=== PATIENT | male | born 1965 | race Caucasian/White ===

== ENCOUNTER 2020-11-20 14:53 | Observation (INO) | payer OTHER ==
[2020-11-20 15:26] VITALS: RESP 16
[2020-11-20] MEDS ORDERED: LIDOCAINE 1% (10MG/ML) FOR IV START INTRADERMA ONE ×2 (15:43)
[2020-11-20] MEDS ORDERED: LACTATED RINGERS 1,000 ML IV ONE (15:43)
[2020-11-20] MEDS ORDERED: ONDANSETRON 4 MG/2 ML VIAL ONE (15:45)
[2020-11-20] MEDS ORDERED: DEXAMETHASONE SOD PHOSPHATE 4 MG/ML 1 ML VIAL IV ONE (15:47)
[2020-11-20] MEDS ORDERED: ONDANSETRON 4 MG/2 ML VIAL IVP ONE (15:47)
[2020-11-20 15:56] LABS: Basophils # (A) 0.1 k/uL (0-0.2); Basophils % (A) 1 %; Eosinophils # (A) 0.2 k/uL (0-0.7); Eosinophils % (A) 2 %; HCT 45.3 % (39.0-53.0); HGB 15.4 gm/dL (13.0-17.5); Lymphocytes # (A) 1.7 k/uL (1.0-4.8); Lymphocytes % (A) 15 %; MCH 27.6 pg (25.0-35.0); MCHC 33.9 g/dL (31.0-37.0); MCV 81.2 fL (80.0-100.0); Mean Platelet Volume 6.9; Monocytes # (A) 0.7 k/uL (0-1.0); Monocytes % (A) 6 %; Neutrophils # (A) 8.2 k/uL (1.3-7.7); Neutrophils % (A) 73 %; Platelet Count 346 k/uL (150-450); RBC 5.58 m/uL (4.30-5.90); RDW 13.4 % (11.5-15.5); WBC 11.2 k/uL (3.8-10.6)
--- NOTE | 2020-11-20 16:02 | P.GSHP ---
History of Present Illness H&P Date: 11/20/20 Chief Complaint: Right scrotal swelling The patient is a 54-year-old white male who presented with right orchialgia. Ultrasound showed bilateral epididymal cysts. The right epididymis contained 23 mm and 5 mm cysts. He underwent a right epididymectomy on 10/28/2020. A small hydrocele was repaired as well. In the past week, he has experienced increased right scrotal swelling with sanguinous drainage. He underwent incision and drainage on November 18 in the office, and was placed on Keflex. However, there has been no significant improvement. - Constitutional Constitutional: Denies chills, Denies fever Past Medical History Past Medical History: No Reported History History of Any Multi-Drug Resistant Organisms: None Reported Additional Past Surgical History / Comment(s): Right spermatocelectomy with hydrocelectomy 10/2020. Past Psychological History: No Psychological Hx Reported Past Alcohol Use History: None Reported Past Drug Use History: None Reported Medications and Allergies Home Medications Medication Instructions Recorded Confirmed Type Cephalexin [Keflex] 500 mg PO Q6HR 11/20/20 11/20/20 History amLODIPine [Norvasc] 5 mg PO HS 11/20/20 11/20/20 History lisinopriL 40 mg PO HS 11/20/20 11/20/20 History Allergies Allergy/AdvReac Type Severity Reaction Status Date / Time No Known Allergies Allergy Verified 11/20/20 15:17 Surgical - Exam - General well developed, well nourished, no distress - Respiratory normal respiratory effort - Abdomen Abdomen: soft, non tender, no guarding, no rigid, no rebound - Genitourinary normal penis with no external lesions, testicles non-tender - Psychiatric oriented to time, oriented to person, oriented to place, speech is normal, memory intact Results - Labs 11/20/20 15:40 Assessment and Plan (1) Scrotal abscess Current Visit: No Status: Acute Code(s): N49.2 - INFLAMMATORY DISORDERS OF SCROTUM SNOMED Code(s): 65243660 Plan: Right scrotal exploration will be performed. The testicle will be evaluated. An infected hematoma is likely to be encountered, and this will be thoroughly drained and irrigated. If the testicle does not appear to be viable, an orchiectomy will be performed. All of this is been discussed in detail with the patient. He is aware of potential risks, which include anesthesia, bleeding, and persistent infection. He is agreeable to an orchiectomy if indicated. He understands that it may be necessary to allow the scrotal skin incision to heal by secondary intention.
[2020-11-20 16:15] LABS: African American GFR (CKD) >90 (>60 ml/min/1.73 sqM); Anion Gap 10 mmol/L; Blood Urea Nitrogen 11 mg/dL (9-20); Calcium 9.5 mg/dL (8.4-10.2); Carbon Dioxide 21 mmol/L (22-30); Chloride 105 mmol/L (98-107); Glucose 92 mg/dL (74-99); Non-African American GFR(CKD) >90 (>60 ml/min/1.73 sqM); Sodium 136 mmol/L (137-145)
[2020-11-20 16:18] LABS: Potassium 5.1 mmol/L (3.5-5.1)
[2020-11-20] MEDS ORDERED: LIDOCAINE 1% INJ 10MG/ML (20 ML MDV) ONE (18:34)
[2020-11-20] MEDS ORDERED: MIDAZOLAM 2 MG/2 ML VIAL ONE (18:34)
[2020-11-20] MEDS ORDERED: PROPOFOL 10 MG/ML 20 ML VIAL IV ONE (18:34)
[2020-11-20] MEDS ORDERED: HYDROmorphone (PF) 1 MG/ML ONE (18:34)
[2020-11-20] MEDS ORDERED: fentaNYL (PF) 50 MCG/ML 2 ML AMP ONE (18:34)
[2020-11-20] MEDS ORDERED: SUCCINYLCHOLINE CHLORIDE 100 MG/5 ML SYR IV ONE (18:34)
[2020-11-20] MEDS ORDERED: HYDROcodone/APAP 5-325MG 1 EACH TAB PO PRN (19:21)
[2020-11-20] MEDS ORDERED: HYDROmorphone 2 MG/ML 1 ML SYRINGE IVP PRN (19:21)
[2020-11-20] MEDS ORDERED: ACETAMINOPHEN TAB 325 MG TAB PO PRN (19:21)
--- NOTE | 2020-11-20 19:27 | P.OP ---
Date of Procedure: 11/20/20 Preoperative Diagnosis: Right scrotal abscess Postoperative Diagnosis: Same Procedure(s) Performed: Incision and drainage of right scrotal abscess Anesthesia: HARRIET Surgeon: Art Bo Estimated Blood Loss (ml): 10 IV fluids (ml): 400 Pathology: none sent Condition: stable Disposition: PACU Indications for Procedure: The patient is a 54-year-old white male who presented with right orchialgia. Ultrasound showed bilateral epididymal cysts. The right epididymis contained 23 mm and 5 mm cysts. He underwent a right epididymectomy on 10/28/2020. A small hydrocele was repaired as well. In the past week, he has experienced increased right scrotal swelling with sanguinous drainage. He underwent incision and drainage on November 18 in the office, and was placed on Keflex. However, there has been no significant improvement. Operative Findings: Right scrotal hematoma which appears infected. Description of Procedure: The patient was taken to the operating room and placed in the supine position. The external genitalia was prepped and draped sterilely. The scalpel was used to open the previous scrotal incision. As the scrotal space was entered, drainage of cloudy sanguinous fluid was noted. Digital dissection was used to break down any intrascrotal adhesions, and the right scrotal space was irrigated multiple times with normal saline. The testicle was palpably and visibly normal. After thoroughly irrigating the right scrotal space, the wound was packed with half-inch iodoform gauze. Hemostasis was excellent. The wound was covered with surgical fluffs, followed by scrotal support. All sponge and needle counts were correct. The patient tolerated the procedure well was taken to the recovery room in stable condition.
[2020-11-20] MEDS ORDERED: DEXTROSE 5%-0.45% NACL 1,000 ML IV SCH (19:30)
[2020-11-20] MEDS ORDERED: lisinopriL 20 MG TAB PO SCH (21:00)
[2020-11-20] MEDS ORDERED: amLODIPine 5 MG TAB PO SCH (21:00)
[2020-11-21] MEDS: HYDROcodone/APAP 5-325MG 1 EACH TAB PO PRN ×2 (02:55→08:21)
[2020-11-21 08:08] VITALS: BP 160/85; PULSE 69; TEMP 98.4
[2020-11-21] MEDS ORDERED: KETOROLAC 15 MG/ML 1 ML VIAL IVP STA (11:23)
--- NOTE | 2020-11-21 11:47 | P.DS ---
Providers Date of admission: 11/20/20 19:21 Expected date of discharge: 11/21/20 Attending physician: Art Bo Primary care physician: Eliud Goldberg - Discharge Diagnosis(es) (1) Scrotal abscess Current Visit: No Status: Acute Hospital Course: The patient is a 54-year-old white male who presented with right orchialgia. Ultrasound showed bilateral epididymal cysts. The right epididymis contained 23 mm and 5 mm cysts. He underwent a right epididymectomy on 10/28/2020. A small hydrocele was repaired as well. In the past week, he has experienced increased right scrotal swelling with sanguinous drainage. He underwent incision and drainage on November 18 in the office, and was placed on Keflex. However, there has been no significant improvement. On 11/20/2020, he underwent I & D in the Operating Room. Findings were consistent with an infected hematoma. The post-op course was unremarkable. He remained afebrile. On POD #1, the iodoform packing was changed and his was taught how to do this. Scrotal edema was markedly diminished. Procedures: I & D right scrotal abscess on 11/20/2020. Patient Condition at Discharge: Good Plan - Discharge Summary Discharge Rx Participant: No New Discharge Prescriptions: New HYDROcodone/APAP 5-325MG [H[place] 5-325] 1 - 2 tab PO Q6HR PRN #10 tab PRN Reason: Severe Pain Ketorolac [Toradol] 10 mg PO Q6HR PRN #12 tab PRN Reason: Moderate Pain No Action amLODIPine [Norvasc] 5 mg PO HS Cephalexin [Keflex] 500 mg PO Q6HR lisinopriL 40 mg PO HS Discharge Medication List Cephalexin [Keflex] 500 mg PO Q6HR 11/20/20 [History] amLODIPine [Norvasc] 5 mg PO HS 11/20/20 [History] lisinopriL 40 mg PO HS 11/20/20 [History] HYDROcodone/APAP 5-325MG [H[place]inson 5-325] 1 - 2 tab PO Q6HR PRN #10 tab 11/21/20 [Rx] Ketorolac [Toradol] 10 mg PO Q6HR PRN #12 tab 11/21/20 [Rx] Follow up Appointment(s)/Referral(s): Art Bo MD [STAFF PHYSICIAN] - 1 Week Activity/Diet/Wound Care/Special Instructions: Pack wound with Iodoform gauze BID. OK to shower. Diet as tolerated. Discharge Disposition: HOME SELF-CARE
== END 2020-11-21 12:24 | disposition home or self-care (01) ==
LOC: OR 14:53 → 4SSUR 19:21
PROVIDERS: ADMIT Urology; ATTEND Urology
DX: N49.2 Inflammatory disorders of scrotum (principal); Z79.899 Other long term (current) drug therapy; I10 Essential (primary) hypertension
CPT/HCPCS: 80048; 85025; 54700; G0378 ×2; J2250; J1100; J0690 ×2; J2405; J2001; J3010; J1170; J1885; J0330; J2704